=== PATIENT | female | born 1995 | race Caucasian/White ===

== ENCOUNTER 2022-02-10 22:26 | Emergency (ER) | payer OTHER ==
[2022-02-10 23:25] LABS: INFLUENZA A NAA NEGATIVE (NEGATIVE)
[2022-02-10 23:28] LABS: CORONAVIRUS 2019 SARS-COV-2 POSITIVE (NEGATIVE)
[2022-02-11] MEDS ORDERED: ONDANSETRON ODT4 MG PO (00:42)
== END 2022-02-11 00:38 | disposition home or self-care (01) ==
LOC: FER 22:26
PROVIDERS: Emergency Medicine
DX: U07.1 COVID-19 (principal); Z88.0 Allergy status to penicillin; Z28.310 Unvaccinated for COVID-19
CPT/HCPCS: 84703; J1885; J2405; J7030; U0002